=== PATIENT | female | born 1995 | race Caucasian/White ===

== ENCOUNTER 2020-04-23 07:46 | Emergency (ER) | payer BC, OTHER ==
[~2020-04-23] VITALS: Ht 157.5 cm; Wt 80.6 kg
[2020-04-23] MEDS ORDERED: ONDANSETRON PF 4 MG/2 ML VIAL. ONE (08:15)
--- NOTE | 2020-04-23 08:17 | PHYS DOC ---
Past History Past Medical History: Asthma, Kidney Stones, Other Additional Past Medical Histor: leukemia Past Surgical History: Tonsillectomy Smoking: Non-smoker Alcohol Use: None General Adult EDM: Chief Complaint: CHEST PAIN HPI: HPI: Patient is a 25-year-old female who presents to the emergency department for evaluation. She states that she awakened this morning with some anterior/right- sided chest discomfort. The pain is described as an achiness. It is not associated with any shortness of breath, and not worsened by exertion or deep breathing. She has not had any diaphoresis. There is no family history of premature onset coronary disease. The patient does not have any associated vomiting, or diaphoresis. She is approximately 15 weeks , but denies any abdominal pain, vaginal bleeding or discharge or concerns related to her . She has no personal or family history of venous thromboembolic disease. Patient states that she was outside in the heat yesterday. Review of Systems: Review of Systems: Constitutional: Denies fever or chills Eyes: Denies change in visual acuity HENT: Denies nasal congestion or sore throat Respiratory: Denies cough or shortness of breath Cardiovascular: As per HPI GI: Denies abdominal pain, nausea, vomiting, bloody stools or diarrhea : Denies dysuria Musculoskeletal: Denies back pain or joint pain Integument: Denies rash Neurologic: Denies headache, focal weakness or sensory changes Endocrine: Denies polyuria or polydipsia Lymphatic: Denies swollen glands Psychiatric: Denies depression or anxiety Heart Score: Risk Factors: Risk Factors: DM, Current or recent (<one month) smoker, HTN, HLP, family history of CAD, obesity. Risk Scores: Score 0 - 3: 2.5% MACE over next 6 weeks - Discharge Home Score 4 - 6: 20.3% MACE over next 6 weeks - Admit for Clinical Observation Score 7 - 10: 72.7% MACE over next 6 weeks - Early Invasive Strategies Allergies: Allergies: Allergies Coded Allergies Type Severity Reaction Last Updated Verified No Known Drug Allergies 04/23/20 No Physical Exam: PE: PHYSICAL EXAM: CONSTITUTIONAL: Well developed, well nourished HEAD: normocephalic, atraumatic EENT: PERRL, EOMI. Conjunctivae normal color, sclerae non-icteric; moist mucous membranes. NECK: Supple, non-tender; no meningismus. LUNGS: Lungs CTA, breathing even and unlabored. Normal air movement. HEART: Regular rate and rhythm, no murmur CHEST: No deformity; palpation of the anterior chest wall does reproduce the patient's pain. ABDOMEN: The abdomen is soft, and non-tender, no masses or bruits. Gravid uterus is palpable and nontender. EXTREM: Normal ROM; no deformity, no calf tenderness. Normal pulses palpable in all extremities. There is no pedal edema. SKIN: No rash; no diaphoresis NEURO: Alert; normal speech and cognition; CN's grossly intact; strength grossly intact without focal deficit. BACK: No CVA TTP. Current Patient Data: Labs: Laboratory Tests Test 04/23/20 07:55 White Blood Count 13.1 x10^3/uL Red Blood Count 4.23 x10^6/uL Hemoglobin 12.8 g/dL Hematocrit 38.1 % Mean Corpuscular Volume 90 fL Mean Corpuscular Hemoglobin 30 pg Mean Corpuscular Hemoglobin Concent 34 g/dL Red Cell Distribution Width 13.0 % Platelet Count 242 x10^3/uL Neutrophils (%) (Auto) 77 % Lymphocytes (%) (Auto) 17 % Monocytes (%) (Auto) 5 % Eosinophils (%) (Auto) 1 % Basophils (%) (Auto) 0 % Neutrophils # (Auto) 10.1 x10^3uL Lymphocytes # (Auto) 2.2 x10^3/uL Monocytes # (Auto) 0.6 x10^3/uL Eosinophils # (Auto) 0.1 x10^3/uL Basophils # (Auto) 0.0 x10^3/uL Sodium Level 138 mmol/L Potassium Level 3.4 mmol/L Chloride Level 102 mmol/L Carbon Dioxide Level 25 mmol/L Anion Gap 11 Blood Urea Nitrogen 9 mg/dL Creatinine 0.7 mg/dL Estimated GFR (Cockcroft-Gault) 100.4 BUN/Creatinine Ratio 13 Glucose Level 91 mg/dL Calcium Level 8.4 mg/dL Total Bilirubin 0.2 mg/dL Aspartate Amino Transf (AST/SGOT) 15 U/L Alanine Aminotransferase (ALT/SGPT) 24 U/L Alkaline Phosphatase 57 U/L Troponin I Quantitative < 0.017 ng/mL Total Protein 6.0 g/dL Albumin 3.0 g/dL Albumin/Globulin Ratio 1.0 Current Medications Medications (Trade) Dose Ordered Sig/Pavel Route PRN Reason Start Time Stop Time Status Last Admin Dose Admin Acetaminophen (Tylenol) 650 mg 1X ONCE PO 04/23/20 08:30 04/23/20 08:31 DC 04/23/20 08:24 Ondansetron HCl (Zofran) 4 mg STK-MED ONCE .ROUTE 04/23/20 08:15 04/23/20 08:15 DC Sodium Chloride 1,000 ml @ 1,000 mls/hr 1X ONCE IV 04/23/20 08:30 04/23/20 09:29 DC 04/23/20 08:23 Ondansetron HCl (Zofran) 4 mg 1X ONCE IVP 04/23/20 08:30 04/23/20 08:31 DC 04/23/20 08:24 Vital Signs: Vital Signs Date Time Temp Pulse Resp B/P (MAP) Pulse Ox O2 Delivery O2 Flow Rate FiO2 04/23/20 07:46 98.3 92 18 129/94 (106) 97 Room Air EKG: EKG: normal sinus rhythm, borderline left axis deviation, normal intervals. There are no acute ischemic ST/T changes. [] Radiology/Procedures: Radiology/Procedures: PROCEDURE: PORTABLE CHEST 1V Examination: PORTABLE CHEST 1V History: Reason: cp / Spl. Instructions: / History: Comparison/Correlation: None Findings: Portable frontal view of the chest was obtained. Heart size and pulmonary vessels are normal. No infiltrate or pleural effusion. No pneumothorax. Bony structures unremarkable. Impression: Normal portable chest x-ray exam.[] Course & Med Decision Making: Course & Med Decision Making Pertinent Labs and Imaging studies reviewed. (See chart for details) [] 9:45 AM: Patient's condition remained stable, she is feeling significantly better, she is having no complaints at this time. Her pain has resolved. Clinical suspicion of pulmonary embolism is very low, given the lack of shortness of breath, pleuritic pain, hypoxia, or tachycardia. I discussed expectant management, the need for close follow-up, and return precautions in detail. Lisbet Disclaimer: Lisbet Disclaimer: This electronic medical record was generated, in whole or in part, using a voice recognition dictation system. Departure Departure: Impression: Primary Impression: Chest pain, atypical Disposition: 01 HOME/RESIDENCE PRIOR TO ADM Condition: STABLE Patient Instructions: Chest Pain (Nonspecific), Musculoskeletal Pain Justification of Admission: Justification of Admission: Justification of Admission Dx: N/A BRYSON ENNIS MD Apr 23, 2020 08:16
[2020-04-23] MEDS ORDERED: IV NORMAL SALINE 1,000ML 1,000 ML IV ONE (08:30)
[2020-04-23] MEDS ORDERED: ACETAMINOPHEN 325 MG TABLET PO ONE (08:30)
[2020-04-23] MEDS ORDERED: ONDANSETRON PF 4 MG/2 ML VIAL. IVP ONE (08:30)
[2020-04-23 09:02] LABS: BASO % 0 % (0-3); EOS # 0.1 x10^3/uL (0.0-0.7); EOS % 1 % (0-3); HEMATOCRIT 38.1 % (36.0-47.0); HEMOGLOBIN 12.8 g/dL (12.0-15.5); LYMPH # 2.2 x10^3/uL (1.0-4.8); LYMPH % 17 % (24-48); MEAN CORPUSCULAR HEMOGLOBIN 30 pg (25-35); MEAN CORPUSCULAR HGB CONC 34 g/dL (31-37); MEAN CORPUSCULAR VOLUME 90 fL (79-100); MONO # 0.6 x10^3/uL (0.0-1.1); MONO % 5 % (0-9); NEUT # 10.1 x10^3uL (1.8-7.7); NEUT % 77 % (31-73); PLATELET COUNT 242 x10^3/uL (140-400); RED BLOOD COUNT 4.23 x10^6/uL (3.50-5.40); WHITE BLOOD COUNT 13.1 x10^3/uL (4.0-11.0)
[2020-04-23 09:04] LABS: CALCIUM 8.4 mg/dL (8.5-10.1); CREATININE 0.7 mg/dL (0.6-1.0); GFR 100.4; POTASSIUM 3.4 mmol/L (3.5-5.1)
[2020-04-23 09:10] LABS: TOTAL BILIRUBIN 0.2 mg/dL (0.2-1.0)
[2020-04-23 09:20] VITALS: BP 119/66
--- NOTE | 2020-04-23 09:33 | RAD ---
Examination: PORTABLE CHEST 1V History: Reason: cp / Spl. Instructions: / History: Comparison/Correlation: None Findings: Portable frontal view of the chest was obtained. Heart size and pulmonary vessels are normal. No infiltrate or pleural effusion. No pneumothorax. Bony structures unremarkable. Impression: Normal portable chest x-ray exam. Electronically signed by: Trip Howell MD (04/23/2020 9:30 AM) [email or web address]
--- NOTE | 2020-04-23 10:28 | EKG ---
[address] [address] Test Date: 2020-04-23 Test Time: 07:48:21 Pat Name: JESSICA AJ Department: Room: Gender: F Monotype Operator: : [id number] Requested By: BRYSON ENNIS Order Number: [id number] Reading MD: Measurements Intervals [place] Rate: 96 P: 42 UT: 112 QRS: 0 QRSD: 80 T: 9 QT: 354 QTc: 454 Interpretive Statements SINUS RHYTHM LEFTWARD AXIS OTHERWISE NORMAL ECG RI6.02 No previous ECG available for comparison
== END 2020-04-23 09:53 | disposition home or self-care (01) ==
LOC: ER 07:46
DX: O26.892 Other specified pregnancy related conditions, second trimester (principal); R07.89 Other chest pain; O99.512 Diseases of the respiratory system complicating pregnancy, second trimester; J45.909 Unspecified asthma, uncomplicated; Z87.442 Personal history of urinary calculi; Z3A.15 15 weeks gestation of pregnancy
CPT/HCPCS: 36415; 71045; 80053; 84484; 85025; 93005; 96374; 99285; J2405; J7030